=== PATIENT | female | born 1975 | race Caucasian/White ===

== ENCOUNTER 2024-08-02 10:33 | Emergency (ER) | payer OTHER ==
[2024-08-02 11:11] LABS: Bilirubin Negative (Negative); Blood, Urine Negative (Negative); CAUTI Indications for Culture Dysuria,urgency,freq; Clarity Clear (Clear); Glucose, Urine (Dipstick) Normal (Negative); Ketone, Urine Negative (Negative); Leukocyte 250 Leu/uL (Negative); Nitrite Negative (Negative); Protein, Urine (Dipstick) Negative (Neg-Trace); RBC/HPF 0-3 HPF (0-3); Specific Gravity, Urine 1.004 (1.002-1.036); Squamous Epithelial 0-3 HPF (0-3); Urobilinogen Normal mg/dL (Less than 2)
[2024-08-02 11:21] LABS: Bacteria/HPF 1+ HPF (None Seen); Urine Culture Reflex Yes Yes
[2024-08-02] MEDS ORDERED: Acetaminophen 500 MG TAB ONE (12:16)
[2024-08-02] MEDS ORDERED: cefTRIAXone (ROCEPHIN) 2 GM VIAL ONE (12:17)
[2024-08-02] MEDS ORDERED: Ondansetron ODT 4 MG TAB ONE (12:17)
[2024-08-02] MEDS ORDERED: Phenazopyridine HCl 100 MG TAB ONE (12:17)
[2024-08-02] MEDS ORDERED: Sodium Chloride 0.9% 100 ML ONE (12:17)
== END 2024-08-02 13:06 | disposition home or self-care (01) ==
LOC: ERS 10:33
DX: N39.0 Urinary tract infection, site not specified (principal); M32.9 Systemic lupus erythematosus, unspecified; M19.90 Unspecified osteoarthritis, unspecified site; F17.290 Nicotine dependence, other tobacco product, uncomplicated
CPT/HCPCS: 81001; 87086; 96374; 99283; J0696; Q0162

== ENCOUNTER 2025-07-10 13:29 | Outpatient (CLI) | payer OTHER | END 2025-07-10 13:30 | disposition home or self-care (01) | LOC: SCSMRI 13:29 | PROVIDERS: ATTEND Internal Medicine | DX: M54.2 Cervicalgia (principal); M54.50 Low back pain, unspecified; R20.0 Anesthesia of skin; M47.814 Spondylosis without myelopathy or radiculopathy, thoracic region; M48.02 Spinal stenosis, cervical region | CPT/HCPCS: 72141; 72146 ==